=== PATIENT | male | born 1985 ===

== ENCOUNTER 2023-07-23 16:08 | Emergency (ER) | payer MEDICAID, SELFPAY ==
[2023-07-23 17:03] VITALS: BP 121/79; PULSE 91; RESP 16; TEMP 36.8; O2SAT 95; BMI 23.5
--- NOTE | 2023-07-23 17:06 | ED_ITS ---
HPI - URI/Sore Throat General Chief Complaint: Upper Respiratory Symptoms Stated Complaint: wants to get blood tested for diseases Time Seen by Provider: 07/23/23 18:16 Source: patient Mode of arrival: ambulatory Limitations: no limitations History of Present Illness HPI Narrative: 38-year-old male with no significant past medical history who presents emergency department with complaints of sore throat starting today. He reports roughly 3 days ago he would unprotected sex and is concerned that he may have a blood infection secondary to unprotected sex. She denies any testicular pain or swelling or drainage from the penis. He denies any dysuria or other symptoms. Related Data Previous Rx's Medication Instructions Recorded penicillin V potassium 500 mg 500 mg PO BID 10 days #20 tabs 07/23/23 tablet Allergies Allergy/AdvReac Type Severity Reaction Status Date / Time No Known Allergies Allergy Unverified 01/18/20 19:16 [No Known Allergies*] Review of Systems Review of Systems: Yes all other systems are reviewed and are negative [facility] Social History Social History Advance Directives: No Advance Directives Information Provided: No Physical Exam Vital Signs: Vital Signs: Last Vital Signs Temp 98.6 F 07/23/23 18:37 Pulse 74 07/23/23 18:37 Resp 16 07/23/23 18:37 BP 126/84 07/23/23 18:37 Pulse Ox 100 07/23/23 18:37 O2 Del Method Room Air 07/23/23 18:37 BMI result Body Mass Index 23.5 Nursing notes and vital signs reviewed. GENERAL APPEARANCE: A&0 x 4, generally well appearing, no acute distress HENMT: Normal to inspection, atraumatic, face symmetrical. Normal external ears and nose clear. Erythema noted in posterior oropharynx with exudate EYE: PERRLA, EOM intact, structures appear normal NECK: Supple without stiffness or restricted ROM. HEART: Normal rate and regular rhythm, normal S1/S2, no M/R/G LUNGS: LS CTA, moving air well. Able to speak in complete sentences. No crackles, wheezes, or rhonchi auscultated BACK: No CVAT, no obvious deformity EXTREMITIES: Moving all extremities without difficulty. Normal capillary refill. NEUROLOGICAL: Alert and oriented, moving all 4 extremities with equal strength. CN not formally tested but appearing grossly intact. Observed to ambulate with normal gait. Cognition normal SKIN: Warm and dry without any lesions, rash, or visible sores Medical Decision Making Medical Decision Making MDM Narrative: Old records reviewed for previous imaging, lab studies, ECGs, and notes. Yarely ent was assessed the emergency department with no acute distress or toxicity noted. Nasal serology negative for COVID, flu, RSV. Throat swab positive for strep a and pen VK sent to patient preferred pharmacy for management of strep pharyngitis. Patient educated to eat soft, cool foods and to increase hydration to prevent dehydration. Patient is safe for discharge at this time with plan for [id number] Tylenol and/or NSAID such as ibuprofen or naproxen for fever/discomfort with dosing as per packaging. HPI, PE, diagnostics, and plan discussed with patient and family with no unanswered questions at this time. Strict return precautions given to return to the emergency department with new, worsening, or concerning emergent symptoms. Recommended to follow-up with there primary care provider in 24-48 hours for further treatment and management. Differential Diagnosis Differential Diagnoses: The differential diagnosis associated with the presentation includes But not limited to viral syndrome, tonsillitis, peritonsillar abscess, pharyngitis, central abscess, STI, sepsis, malignancy Lab Data Labs: Lab Results 07/23/23 Range/Units 17:24 Influenza Type A (PCR) NEGATIVE (Negative) Influenza Type B (PCR) NEGATIVE (Negative) RSV RNA Qual (PCR) NEGATIVE (Negative) SARS-CoV-2 RNA (RT-PCR) NEGATIVE (Negative) S. pyogenes GrpA HESHAM Positive A (Negative) Discharge Plan Discharge Clinical Impression: Strep pharyngitis Patient Disposition: Home, Self-Care Instructions: Pharyngitis (ED), Strep Throat (ED) Prescriptions: New penicillin V potassium 500 mg tablet 500 mg PO BID 10 Days Qty: 20 0RF [place] [facility] [place] [facility] [place] [facility] [place]] Stand Alone Forms: Work/School Release Interventions: ED Discharge Assessment Last Done: 07/23/23 18:37 Discharge Date/Time: 07/23/23 18:50 Print Language: Kazakh
[2023-07-23 18:14] LABS: IDNOW Serial# 08D9AD1C; Strep A Nucleic Acid Positive (Negative)
[2023-07-23 18:22] LABS: Influenza A PCR NEGATIVE (Negative); Influenza B PCR NEGATIVE (Negative); Resp Syncy Virus RNA Qual PCR NEGATIVE (Negative); SARS COV2 PCR INHOUSE NEGATIVE (Negative)
[2023-07-23 18:37] VITALS: BP 126/84; PULSE 74; RESP 16; TEMP 37; O2SAT 100
== END 2023-07-23 18:50 | disposition home or self-care (01) ==
LOC: HO.ED 18:47
PROVIDERS: Nurse Practitioner Family; Emergency Provider Emergency Medicine
DX: J02.0 Streptococcal pharyngitis (principal); Z11.52 Encounter for screening for COVID-19; Z20.828 Contact with and (suspected) exposure to other viral communicable diseases
CPT/HCPCS: 0241U; 87651; 99282; 99283

== ENCOUNTER → 2023-11-24 10:59 | Outpatient (BNVA) | payer SELFPAY | PROVIDERS: Visit Provider Physician Assistant Medical | DX: Z02.79 Encounter for issue of other medical certificate (principal) ==